=== PATIENT | male | born 1940 | race Caucasian/White ===

== ENCOUNTER → 2016-10-29 | Outpatient (CLI) | payer MEDICARE, OTHER ==
[~2016-10-29] MED LIST: ASPIRIN PO; ASPIRIN81 M2 PO; COLACE PO; FOLIC ACID1 MG PO; HCTZ PO; LISINOPRIL PO; LISINOPRIL30 MG PO; PLAVIX PO; PROTONIX PO; TOPROL XL PO; TOPROL XL50 MG PO; ZOCOR PO; ZOCOR80 MG PO
--- NOTE | ~2016-10-29 | CT57 ---
[facility] A Service of [facility] & [facility] RADIOLOGY TEXT RESULTS PATIENT: SAM NGUYỄN [facility] UN[facility] #: [id number] AGE: [address]: Santy Chan MD SEX: M ORDER DR: [id number] [facility] [address] [place], [place] [address] [id number] O MR#: [id number] Acc #: [id number] NAME: SAM NGUYỄN : 1940 SEX: M STUDY DATE/TIME: 10/29/2016 12:34 UNIT: CCAT ROOM: STUDY DESCRIPTION: CT Chest Wo Cont Attending Physician: Santy Chan M.D. Referring Physician: Santy Chan M.D. Ordering Physician: Santy Chan M.D. Primary Care Physician: Santy Chan M.D. MEDICAL IMAGING REPORT This report is preliminary unless electronic signature is present EXAM CT chest without contrast 10/29/2016 12:34 hours HISTORY A 76-year-old man for evaluation of left lower lobe lung lesion. Lung nodule seen at doctor's office chest x-ray last week. COMPARISON Chest CT 03/05/2016, 02/03/2015 and 02/16/2014. TECHNIQUE Helical noncontrasted images were obtained from the lung apices through the adrenal glands. Sagittal and coronal reconstructions were performed. Total exam DLP 666 mGy/cm. This CT exam was performed with one or more of the following radiation dose reduction techniques: automatic exposure control, adjustment of mA and/or kV according to patient size, and iterative reconstruction. FINDINGS Images through the thoracic inlet demonstrate no thyroid lesion or adenopathy. Images through the chest demonstrate median sternotomy change. There is an ascending aortic aneurysm measuring 5 cm where previously measured 4.7 cm 03/05/2016. Transverse aortic arch, descending thoracic aorta are normal in caliber. Cardiac chambers are normal. There are extensive coronary artery calcifications. No pericardial fluid. There is a very small hiatal hernia without change. The lungs demonstrate centrilobular and paraseptal emphysema. There is some linear subpleural fibrotic density in the lingula greater than lower STS. [facility] A Service of [facility] & [facility] RADIOLOGY TEXT RESULTS PATIENT: SAM NGUYỄN LOCATION: [facility] : 38 UNIT #: [id number] AGE: [address]: Santy Chan MD SEX: M ORDER DR: lobes. These parenchymal changes are stable. There is a calcified granuloma in the right middle lobe without change. There is no nodule in the left lower lobe. Limited views through the upper abdomen demonstrates stable benign hepatic cysts. There is no adrenal lesion or pancreatic abnormality. IMPRESSION 1. Interval increase in the known ascending aortic aneurysm now measuring 5 cm where previously measured 4.7 cm. The descending thoracic aorta is normal in caliber. Cardiac chambers and pericardium are within normal limits. 2. The lungs demonstrate emphysematous change in the chronic nonspecific subpleural interstitial fibrotic change in the lingula in both lower lobes similar to 09/04/2015. There is a calcified granuloma in the right middle lobe. There is no suspicious lung nodule. STAT * RESULT Dictated by... Angela Dorantes M.D. THIS IS AN ELECTRONICALLY VERIFIED REPORT Angela Dorantes M.D. at 10/30/2016 3:51 PM Stephan TD: 10/30/2016 14:55 JOB #: [id number] MEDICAL IMAGING REPORT Page 1 of 1 COPY
== END | disposition home or self-care (01) ==
LOC: CCAT 12:08
DX: R91.1 Solitary pulmonary nodule (principal); I71.2 Thoracic aortic aneurysm, without rupture; J84.10 Pulmonary fibrosis, unspecified
CPT/HCPCS: 71250